=== PATIENT | female | born 1990 | race Caucasian/White ===

== ENCOUNTER 2019-09-01 08:28 | Emergency (ER) | payer OTHER ==
[2019-09-01 09:43] LABS: BASOPHILS # (AUTO) 0.1 10^3/uL (0.0-0.1); BASOPHILS % (AUTO) 0.5 %; EOSINOPHILS % (AUTO) 0.3 %; HGB - HEMOGLOBIN 13.4 g/dL (12.0-16.0); LYMPHOCYTES # (AUTO) 1.5 10^3/uL (1.5-3.5); LYMPHOCYTES % (AUTO) 15.5 %; MEAN CORPUSCULAR HEMOGLOBIN 29.6 pg (27.0-31.0); MEAN CORPUSCULAR HGB CONC 33.5 g/dL (32.0-36.0); MEAN CORPUSCULAR VOLUME 88.3 fL (81.0-99.0); MEAN PLATELET VOLUME 10.2 fL (7.9-10.8); MONOCYTES # (AUTO) 0.7 10^3/uL (0.0-1.0); MONOCYTES % (AUTO) 7.4 %; NEUTROPHILS # (AUTO) 7.5 10^3/uL (1.5-6.6); NEUTROPHILS % (AUTO) 75.9 %; PLT - PLATELET COUNT 330 10^3/uL (130-450); RED BLOOD COUNT 4.53 10^6/uL (4.20-5.40); WHITE BLOOD COUNT 9.9 x10^3/uL (4.8-10.8)
[2019-09-01 09:57] LABS: ALBUMIN/GLOBULIN RATIO 1.2 (1.0-2.2); BILIRUBIN,TOTAL 0.6 mg/dL (0.2-1.0); CALCIUM 8.7 mg/dL (8.5-10.3); CREATININE 0.7 mg/dL (0.4-1.0); TOTAL PROTEIN 7.4 g/dL (6.7-8.2)
--- NOTE | 2019-09-01 10:19 | ED Physician Documentation ---
PD HPI FEMALE - Stated complaint Stated Complaint: FEMALE - Chief complaint Chief Complaint: Abd Pain - History obtained from History obtained from: Patient - History of Present Illness Timing - onset: Today Timing - duration: Hours Timing - details: Gradual onset, Still present Associated symptoms: Pelvic pain, Vaginal bleeding Contributing factors: [employer] History: G (2), P (0), Miscarriage(s) (1) Similar symptoms before: Diagnosis (misscarriage) Recently seen: Not recently seen - Additional information Additional information: 29-year-old female with 1 prior miscarriage is again with a positive test at home she believes about 5 weeks along. She had a last menstrual period the end of June. She has not had an ultrasound with this . She has developed bleeding today after coitus last night. She is not otherwise having symptoms. She does have some breast tenderness and nausea she is not vomiting. Review of Systems Constitutional: denies: Fever, Chills, Myalgias, Fatigue Eyes: denies: Decreased vision Ears: denies: Ear pain Nose: denies: Rhinorrhea / runny nose, Congestion Throat: denies: Sore throat Cardiac: denies: Chest pain / pressure, Palpitations Respiratory: denies: Dyspnea, Cough GI: reports: Abdominal Pain, Nausea. denies: Vomiting, Constipation, Diarrhea : denies: Dysuria, Frequency Skin: denies: Rash Musculoskeletal: denies: Neck pain, Back pain, Extremity pain Neurologic: denies: Generalized weakness, Focal weakness, Numbness PD PAST MEDICAL HISTORY - Present Medications Home Medications: Ambulatory Orders Medication Instructions Recorded Confirmed Nitrofurantoin Monohyd/M-Cryst 100 mg PO BID #10 capsule 09/01/19 [Macrobid 100 mg Capsule] - Allergies Allergies/Adverse Reactions: Allergies Allergy/AdvReac Type Severity Reaction Status Date / Time No Known Drug Allergies Allergy Verified 09/01/19 08:41 PD ED PE NORMAL - Vitals Vital signs reviewed: Yes (hypertensive diastolic mild) - General General: Alert and oriented X 3, No acute distress, Well developed/nourished - HEENT HEENT: Atraumatic, PERRL, EOMI - Neck Neck: Supple, no meningeal sign - Cardiac Cardiac: RRR, No murmur - Respiratory Respiratory: No respiratory distress, Clear bilaterally - Abdomen Abdomen: Normal bowel sounds, Soft, Non tender, Non distended, No organomegaly - Back Back: No CVA TTP, No spinal TTP - Derm Derm: Normal color, Warm and dry, No rash - Extremities Extremities: No deformity, No edema - Neuro Neuro: Alert and oriented X 3, 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, No motor deficit, No sensory deficit, Normal speech Eye Opening: Spontaneous Motor: Obeys Commands Verbal: Oriented GCS Score: 15 - Psych Psych: Normal mood, Normal affect Results - Vitals Vitals: Vital Signs - 24 hr 09/01/19 09/01/19 09/01/19 08:42 10:38 12:52 Temperature 36.5 C 36.8 C Heart Rate 61 70 81 Respiratory 17 16 18 Rate Blood Pressure 108/87 H 136/66 H 102/68 O2 Saturation 98 99 100 Oxygen O2 Source Room air - Labs Labs: Laboratory Tests 09/01/19 09/01/19 09/01/19 09:34 09:34 09:34 WBC 9.9 RBC 4.53 Hgb 13.4 Hct 40.0 MCV 88.3 MCH 29.6 MCHC 33.5 RDW 14.0 Plt Count 330 MPV 10.2 Neut # (Auto) 7.5 H Lymph # (Auto) 1.5 [place]erry # (Auto) 0.7 Eos # (Auto) 0.0 Baso # (Auto) 0.1 Absolute Nucleated RBC 0.00 Nucleated RBC % 0.0 Sodium 133 L Potassium 3.5 Chloride 101 Carbon Dioxide 25 Anion Gap 7.0 BUN 8 Creatinine 0.7 Estimated GFR (MDRD) 100 Glucose 100 Calcium 8.7 Total Bilirubin 0.6 AST 18 ALT 16 Alkaline Phosphatase 61 Total Protein 7.4 Albumin 4.0 Globulin 3.4 Albumin/Globulin Ratio 1.2 Lipase 29 HCG, Quant Urine Color Urine Clarity Urine pH Ur Specific [place] Urine Protein Urine Glucose (UA) Urine Ketones Urine Occult Blood Urine Nitrite Urine Bilirubin Urine Urobilinogen Ur Leukocyte Esterase Urine RBC Urine WBC Ur Squamous Epith Cells Urine Bacteria Ur Microscopic Review Urine Culture Comments Blood Type O POSITIVE 09/01/19 09/01/19 09:34 10:21 WBC RBC Hgb Hct MCV MCH MCHC RDW Plt Count MPV Neut # (Auto) Lymph # (Auto) [place] # (Auto) Eos # (Auto) Baso # (Auto) Absolute Nucleated RBC Nucleated RBC % Sodium Potassium Chloride Carbon Dioxide Anion Gap BUN Creatinine Estimated GFR (MDRD) Glucose Calcium Total Bilirubin AST ALT Alkaline Phosphatase Total Protein Albumin Globulin Albumin/Globulin Ratio Lipase HCG, Quant 56908.00 Urine Color DARK YELLOW Urine Clarity HAZY Urine pH 7.0 Ur Specific [place] 1.020 Urine Protein NEGATIVE Urine Glucose (UA) NEGATIVE Urine Ketones NEGATIVE Urine Occult Blood LARGE H Urine Nitrite NEGATIVE Urine Bilirubin NEGATIVE Urine Urobilinogen 0.2 (NORMAL) Ur Leukocyte Esterase SMALL H Urine RBC 0-5 Urine WBC 6-10 H Ur Squamous Epith Cells MOD Squamous H Urine Bacteria Few Ur Microscopic Review INDICATED Urine Culture Comments NOT INDICATED Blood Type - Rads (name of study) ob u/s Radiology: Prelim report reviewed (Impression: 1. Single live intrauterine gestation. [place]-rump length of 0.8 cm corresponds to an estimated gestational age by ultrasound of 6 weeks 5 days. 2. There is a small carlos-gestational hemorrhage. 3. No significant adnexal abnormalities are seen.), EMP read indepedently, See rad report Procedures - Bedside sono Bedside sono by EMP: With use of bedside ultrasound the pelvis is imaged there is no urine in the bladder the images are of poor quality but there does appear to be a gestational sac without fetus measuring 6 weeks 5 days. PD MEDICAL DECISION MAKING - ED course Complexity details: reviewed results, re-evaluated patient, considered differential, d/w patient ED course: 29-year-old female with early has not established that the is in the uterus and she is having some vaginal bleeding and cramping. The bedside ultrasound shows what appears to be a gestational sac without fetus. Formal ultrasound is obtained. She does appear to have a urinary tract infection. Departure - Departure Disposition: 01 Home, Self Care Clinical Impression: Threatened Urinary tract infection Qualifiers: Urinary tract infection type: acute cystitis Hematuria presence: without hematuria Qualified Code(s): N30.00 - Acute cystitis without hematuria Condition: Stable Instructions: ED Miscarriage Poss, ED UTI Cystitis Female Follow-Up: [facility] [Provider Group] Prescriptions: Nitrofurantoin Monohyd/M-Cryst [Macrobid 100 mg Capsule] 100 mg PO BID #10 capsule
[2019-09-01 10:30] LABS: BILIRUBIN,URINE NEGATIVE (NEGATIVE); GLUCOSE, URINE (UA) NEGATIVE (NEGATIVE); KETONES,URINE (UA) NEGATIVE (NEGATIVE); LEUKOCYTE ESTERASE, URINE SMALL (NEGATIVE); NITRITE,URINE NEGATIVE (NEGATIVE); OCCULT BLOOD,URINE LARGE (NEGATIVE); PROTEIN,URINE NEGATIVE (NEGATIVE); UROBILINOGEN,URINE 0.2 (NORMAL) E.U./dL (NORMAL)
[2019-09-01 10:32] LABS: CLARITY,URINE HAZY (CLEAR)
[2019-09-01 10:40] LABS: RBC,URINE 0-5 /HPF (0-5)
[2019-09-01 10:41] LABS: BACTERIA,URINE Few /HPF (None Seen); SQUAMOUS EPITHELIAL CELL,UR MOD Squamous (<= Few)
--- NOTE | 2019-09-01 12:47 | Ultrasound Report ---
Reason: bleeding early preg no fetus on bedside Procedure Date: 09/01/2019 Accession Number: [id number] / [id number] Procedure: US - OB First Trimester CPT Code: Final Report FULL RESULT: EXAM: FIRST TRIMESTER OBSTETRIC ULTRASOUND (Less than 11 weeks) EXAM DATE: 09/01/2019 12:32 PM. CLINICAL HISTORY: Vaginal bleeding, LMP: Unknown. COMPARISONS: None. TECHNIQUE: Transabdominal and transvaginal ultrasound examination with static image documentation. ASSESSMENT: Gestational Sac: Single intrauterine. Mean gestational sac diameter: 20 mm = 6 weeks 6 days. Embryo: CRL (crown-rump length) 8 mm = 6 weeks 5 days. Cardiac activity: 117 beats per minute. Yolk sac: 2.5 mm. Amniotic fluid: Not accurately assessed at this gestational age. Early placenta: Not visible at this gestational age. Other: There is a small carlos-gestational fluid collection. MATERNAL STRUCTURES: Uterus: Anteverted/Retroverted. Unremarkable. Cervix: Closed. Right Ovary/Adnexa: The ovary measures 3.1 x 2.6 x 2.4 cm, volume 10.1 cc. Unremarkable. Left Ovary/Adnexa: The ovary measures 2.4 x 2.4 x 1.8 cm, volume 5.4 cc. Unremarkable. Free Fluid: None. Other: None. IMPRESSION: 1. Single live intrauterine gestation. [place]-rump length of 0.8 cm corresponds to an estimated gestational age by ultrasound of 6 weeks 5 days. 2. There is a small perigestational hemorrhage. 3. No significant adnexal abnormalities are seen. RADIA
[2019-09-01 13:25] VITALS: BP 112/65
== END 2019-09-01 13:25 | disposition home or self-care (01) ==
LOC: ED 08:28
DX: O20.0 Threatened abortion (principal); O23.11 Infections of bladder in pregnancy, first trimester; Z3A.01 Less than 8 weeks gestation of pregnancy
CPT/HCPCS: 36415; 76801; 76817; 80053; 81001; 81003; 83690; 84702; 85025; 86900; 86901; 87086; 99284

== ENCOUNTER 2021-05-12 01:18 | Emergency (ER) | payer OTHER ==
--- NOTE | 2021-05-12 01:29 | ED Physician Documentation ---
PD HPI URI - Stated complaint Stated Complaint: BODY ACHE, COUGH, CONJESTED - History obtained from History obtained from: Patient - History of Present Illness Timing - onset: Today Timing details: Gradual onset Associated symptoms: Chills, Sweats, Nasal congestion, Sore throat, Dry cough Contributing factors: Sick contact (son (registered in ED at this time as archie ent,similar symptoms)) Improves by: Nothing Recently seen: Not recently seen - Additional information Additional information: c/o head and chest congestion, bifrontal headache, nonproductive cough, chils. She is COVID vaccinated without booster. Symptoms began this morning. Only measured her temperature once today, was afebrile on that measurement Review of Systems Constitutional: reports: Chills, Myalgias, Sweats Nose: reports: Congestion Throat: reports: Sore throat Cardiac: reports: Reviewed and negative Respiratory: reports: Cough. denies: Dyspnea GI: reports: Reviewed and negative : denies: Now EGA Neurologic: reports: Headache PD PAST MEDICAL HISTORY - Past Medical History Past Medical History: No - Present Medications Home Medications: Ambulatory Orders Medication Instructions Recorded Confirmed Nitrofurantoin Monohyd/M-Cryst 100 mg PO BID #10 capsule 09/01/19 [Macrobid 100 mg Capsule] - Allergies Allergies/Adverse Reactions: Allergies Allergy/AdvReac Type Severity Reaction Status Date / Time No Known Drug Allergies Allergy Verified 05/12/21 01:27 - Social History Does the pt smoke?: No Smoking Status: Never smoker Does the pt drink ETOH?: No Does the pt have substance abuse?: No - Immunizations Immunizations are current?: Yes PD ED PE NORMAL - Vitals Vital signs reviewed: Yes - General General: Alert and oriented X 3, No acute distress, Well developed/nourished - HEENT HEENT: Moist mucous membranes - Neck Neck: Supple, no meningeal sign - Cardiac Cardiac: RRR, No murmur - Respiratory Respiratory: No respiratory distress, Clear bilaterally Results - Vitals Vitals: Oxygen O2 Source Room air - Labs Labs: Laboratory Tests 05/12/21 02:32 Coronavirus (PCR) POSITIVE PD MEDICAL DECISION MAKING - ED course Complexity details: considered differential, d/w patient ED course: c/o URI symptoms but afebrile in ED, normal room-air pulse ox, NAD, and lungs are CTA bilaterally on auscultation. Will swab for COVID-19 , which is likely the cause. Other emergent tests are not indicated at this time. Departure - Departure Disposition: 01 Home, Self Care Clinical Impression: Viral syndrome Condition: Good Instructions: ED Viral Syndrome Comments: As we discussed, your symptoms are highly consistent with COVID-19, and your test result is pending (should be available in 2-3 days). A positive result would not record changer but would have implications regarding quarantine/isolation. Check the CDC website for latest recommendations. If your test result is negative, your signs/symptoms and physical exam still would not need other emergency tests at the time of tonight's evaluation. You have a Covid test pending. You need to self quarantine until the result is done and negative. Do not leave your house. Do not get near anybody. The results should be done in 48 to 72 hours. We will call with a positive result, the fastest way to get a negative result for confirmation though is to go to the hospital website at [email or web address], click on the my [facility] tab and sign up for the patient portal. If any friends or family get sick and would like to have a Covid test done, but do not have signs or symptoms that would necessitate being hospitalized, we encourage testing through our coronavirus swabbing station, call [phone] to schedule an appointment. Discharge Date/Time: 05/12/21 02:46
[2021-05-12 01:30] VITALS: BP 140/70
== END 2021-05-12 02:46 | disposition home or self-care (01) ==
LOC: ED 01:18
DX: U07.1 COVID-19 (principal)
CPT/HCPCS: 99282; 99283